=== PATIENT | male | born 1965 | race African-American/Black ===

== ENCOUNTER 2017-01-05 10:36 | Emergency (ER) | payer BC ==
[~2017-01-05] VITALS: Ht 165.1 cm; Wt 73.7 kg
[2017-01-05 11:33] LABS: HEMATOCRIT 44.2 % (38.0-50.0); MCH 29.4 PG (29.0-34.0); MCHC 33.7 G/DL (30.0-36.0); MCV 87.2 FL (86-99); MEAN PLAT.VOLUME 10.9 uM^3 (9.0-12.4); PLATELET COUNT 275 K/uL (156-360); RBC DIS.WIDTH-CV 13.4 % (11.8-14.6); RBC DIS.WIDTH-SD 42.3 % (39-53); RED BLOOD COUNT 5.07 M/uL (4.00-5.50); WHITE BLOOD COUNT 4.2 K/uL (4.1-10.2)
[2017-01-05 11:43] LABS: CHLORIDE 104 mEq/L (99-109); POTASSIUM 4.1 mEq/L (3.7-5.4); SODIUM 135 mEq/L (136-147)
[2017-01-05 11:45] LABS: GLUCOSE 98 mg/dL (70-99)
[2017-01-05 11:46] LABS: ANION GAP 4 MEQ/L (2-14)
[2017-01-05 11:47] LABS: TOTAL BILIRUBIN 1.3 mg/dL (0.0-1.0)
[2017-01-05 11:49] LABS: ALKALINE PHOSPHATASE 62 IU/L (3-129); GFR ESTIMATE (CALCULATED) > 59 mL/min/
[2017-01-05 11:50] LABS: UREA NITROGEN (BUN) 16 mg/dL (9-23)
[2017-01-05 11:56] LABS: TROP-I INTERPRETATION NEGATIVE; TROPONIN-I < 0.01 ng/mL (0.0-0.30)
[2017-01-05] MEDS ORDERED: NAPROSYN500 MG PO (12:01)
[2017-01-05 12:16] VITALS: BP 134/89
== END 2017-01-05 12:15 | disposition home or self-care (01) ==
LOC: EME 10:36
PROVIDERS: Physician Assistant
DX: R07.9 Chest pain, unspecified (principal); B35.3 Tinea pedis; K21.9 Gastro-esophageal reflux disease without esophagitis
CPT/HCPCS: 71020; 80053; 84484; 85027; 93005; 99281; 99284